=== PATIENT | female | born 1990 | race Caucasian/White ===

== ENCOUNTER 2020-10-13 05:26 | Emergency (ER) | payer MEDICAID, SELFPAY ==
[2020-10-13 05:28] VITALS: BP 125/79; PULSE 73; RESP 18; TEMP 36.8; O2SAT 98; BMI 19.8
--- NOTE | 2020-10-13 05:49 | CT_ITS ---
PROCEDURE: CT FACIAL BONES W CON CLINICAL HISTORY: abscess Facial abscess COMPARISON: No exams were available for comparison TECHNIQUE: Axial images obtained with sagittal and coronal reformats. All CT scans at the facility use one or more dose reduction, viz: automated exposure control, ma/kV adjustment per patient size (including targeted exams where dose is matched to indication, i.e. head), or iterative reconstruction technique. FINDINGS: Prominent soft tissue swelling is present in the central aspect of the frontal area of the scalp extending inferiorly to the proximal nasal area. No obvious abscess. The soft tissue swelling extends laterally to the medial aspect of the preseptal region the orbits on both sides left greater than right however, there is no obvious postseptal involvement. Images were also obtained of the brain and neck. There is mild prominent cervical lymph nodes in the neck. The largest node on the right is present in the right jugular chain measuring 1.8 x 1.1 cm. A cluster of nodes are present in the left jugular chain measuring up to 2.7 by 1.5 cm. These may be reactive. The paranasal sinuses have an unremarkable appearance. No acute intracranial findings. IMPRESSION: Cellulitis in the central and lower aspect of the frontal area extending to the nasal region and the medial aspect of the preseptal area of the orbits. No obvious abscess. Mild cervical adenopathy. Dictated by: Mk Barnes MD 10/13/2020 08:33 Mk Barnes MD in [place] 10/13/2020 08:33
[2020-10-13 06:03] LABS: Basophils # 0.1 K/mm3 (0-0.2); Basophils % 0.7 % (0.1-2.0); Eosinophils # 0.7 K/mm3 (0.0-0.4); Eosinophils % 5.1 % (0.1-12.0); Hematocrit 34.8 % (37.0-47.0); Hemoglobin 11.8 g/dL (12.2-16.2); Lymphocytes # 3.5 K/mm3 (0.7-4.5); Lymphocytes % 25.2 % (10-50); Mean Corpuscular HGB Conc 33.8 g/dL (31.8-35.4); Mean Corpuscular Hemoglobin 29.8 pg (27.0-31.2); Mean Corpuscular Volume 88.3 fl (81-99); Mean Platelet Volume 8.6 fl (7.4-10.4); Monocytes # 0.6 K/mm3 (0.1-1.0); Monocytes % 4.3 % (1.7-9.3); Neutrophils % 64.7 % (37.0-80.0); Platelet Count 260 K/mm3 (142-424); Red Blood Count 3.94 M/mm3 (4.20-5.40); Red Cell Distribution Width 12.6 % (11.5-17.5)
[2020-10-13 06:06] LABS: Chloride 105 mmol/L (98-107); Potassium 3.6 mmoL/L (3.5-5.1); Sodium 140 mmol/L (136-145)
[2020-10-13 06:08] LABS: HCG Qualitative, Serum Negative (Negative)
[2020-10-13 06:09] LABS: Alanine Aminotransferase 15 U/L (12-78); Albumin Level 4.2 g/dl (3.5-5.0); Albumin/Globulin Ratio 1.4 (1.1-1.8); Alkaline Phosphatase 84 U/L (38-126); Anion Gap 10.6 mEq/L (5-15); Aspartate Amino Transferase 22 U/L (14-36); Blood Urea Nitrogen 12 mg/dl (7-17); Calcium 8.8 mg/dl (8.4-10.2); Carbon Dioxide 28 mmol/L (22.0-30.0); Creatinine Clearance Estimated 77 mL/min (50-200); Estimated Glomerular Filt Rate 84 ml/min (>60); GFR (African American) 101 ML/MIN (>60); Globulin 3.1 g/dL (1.3-3.2); Glucose 97 mg/dl (74-100); Total Protein,Serum 7.3 g/dl (6.3-8.2)
--- NOTE | 2020-10-13 06:14 | HMH.EDSKAF ---
ED Disposition Clinical Impression: Facial cellulitis Disposition: Home, Self-Care Condition on Discharge: Good Instructions: DI for Skin Abscess Additional Instructions: use meds and see ent today and pcp Prescriptions: cephALEXin [cephALEXin 500mg capsule*] 500 mg PO TID #30 cap Transmission Status: Pending to [facility] STORE # Minocycline HCl [Minocycline HCl 100mg Tab*] 100 mg PO BID #20 tab Transmission Status: Pending to [facility] # Referrals: Provider,MD Toshia [Primary Care Provider] - Angel House MD [Staff Physician] - - Critical Care Critical Care Time: No Attestation: On 10/13/20, the high probability of a clinically significant, sudden or life threatening deterioration of the following system(s) required my full and direct attention, intervention and personal management. The time I documented below is in addition to time spent performing reported procedures but includes the following listed in this critical care notation. Medical Decision Making - Medical Records Medical records reviewed: Yes: I reviewed the patient's medical records. - Rik Inquiry Pt receiving controlled substance: No Vital Signs: 10/13/20 05:28 10/13/20 07:07 Temperature 98.2 F Temperature Source Oral Pulse Rate 66 Pulse Rate [Right Brachial] 73 Respiratory Rate 18 16 Blood Pressure 106/69 L Blood Pressure [Right Arm] 125/79 Blood Pressure Mean [Right Arm] 94 Blood Pressure Source [Right Arm] Automatic Cuff Blood Pressure Position Sitting Blood Pressure Position [Right Arm] Sitting 02 Sat by Pulse Oximetry 98 96 Oxygen Delivery Method Room Air Room Air - Lab Data Lab results reviewed: Yes: I reviewed the patient's lab results. Lab Results 10/13/20 05:50: WBC 14.0 H, RBC 3.94 L, Hgb 11.8 L, Hct 34.8 L, MCV 88.3, MCH 29.8, MCHC 33.8, RDW 12.6, Plt Count 260, MPV 8.6, Neut % (Auto) 64.7, Lymph % (Auto) 25.2, [place] % (Auto) 4.3, Eos % (Auto) 5.1, Baso % (Auto) 0.7, Neut # (Auto) 9.0 H, Lymph # (Auto) 3.5, [place] # (Auto) 0.6, Eos # (Auto) 0.7 H, Baso # (Auto) 0.1, ESR 27 H 10/13/20 05:50: Sodium 140, Potassium 3.6, Chloride 105, Carbon Dioxide 28, Anion Gap 10.6, BUN 12, Creatinine 0.80, Estimated Creat Clear 77, Estimated GFR 84, Est GFR ( Amer) 101, Glucose 97, Calcium 8.8, Total Bilirubin 1.0, AST 22, ALT 15, Alkaline Phosphatase 84, C-Reactive Protein 4.8 H, Total Protein 7.3, Albumin 4.2, Globulin 3.1, Albumin/Globulin Ratio 1.4 10/13/20 05:50: Procalcitonin 0.045 10/13/20 05:50: Serum HCG, Qual Negative 10/13/20 06:08: Lactate < 0.5 L Result diagrams: 10/13/20 05:50 10/13/20 05:50 Orders (Tests/Meds): ED MEDICATIONS Generic Name Dose Route Start Last Admin Trade Name Freq PRN Reason Stop Dose Admin Miscellaneous 1 each 10/13/20 06:00 10/13/20 06:00 Vancomycin Consult Request * 11/12/20 05:59 1 each CONSULT PHARMACY SHANA Administration Discontinued Medications Generic Name Dose Route Start Last Admin Trade Name Freq PRN Reason Stop Dose Admin Vancomycin HCl 1,000 mg/ 250 mls @ 125 mls/hr 10/13/20 05:59 10/13/20 06:10 Sodium Chloride IV 10/13/20 07:58 125 mls/hr ONCE ONE Administration Protocol Sodium Chloride 1,000 mls @ 999 mls/hr 10/13/20 06:00 10/13/20 06:09 Sod Chlor 0.9% 1000ml Bag IV 10/13/20 07:00 999 mls/hr .Q1H1M SHANA Administration Iopamidol 75 ml 10/13/20 06:29 10/13/20 06:30 Iopamidol-370 (76%);100ml Bottle IV 10/13/20 06:30 75 ml ONCE ONE Administration Ketorolac Tromethamine 30 mg 10/13/20 06:08 10/13/20 06:09 Ketorolac 30mg/Ml Vial IV 10/13/20 06:09 30 mg ONCE ONE Administration Methylprednisolone Sodium Succinate 125 mg 10/13/20 06:08 10/13/20 06:09 Methylprednisolone Sod Succ 125mg Vial IV 10/13/20 06:09 125 mg ONCE ONE Administration Sodium Chloride 10 ml 10/13/20 06:29 10/13/20 06:30 Sodium Chloride 0.9% 10ml Syr (Rad Only) IV 10/13/20 06:30 10 ml
[2020-10-13 06:15] LABS: C-Reactive Protein 4.8 mg/L (0-4)
[2020-10-13 06:26] LABS: Procalcitonin 0.045 ng/mL (0.0-2.0)
[2020-10-13 06:38] LABS: Erythrocyte Sedimentation Rate 27 mm/hr (0-20)
[2020-10-13 06:44] LABS: Lactic Acid < 0.5 mmol/L (0.7-2.1)
[2020-10-13 07:07] VITALS: BP 106/69; PULSE 66; RESP 16; O2SAT 96
[2020-10-13 07:30] VITALS: BP 109/66; PULSE 83; O2SAT 96
[2020-10-13 08:00] VITALS: BP 97/50; PULSE 78; O2SAT 96
--- NOTE | 2020-10-13 08:19 | PC.NURSE ---
contacted Radiology to check on status of CT read, states they have chatted with [facility] multiple times attempted to get them to read CT on pt. States they will check on it again.
--- NOTE | 2020-10-13 08:25 | PC.NURSE ---
Vika from Radiology called at this time, states Dr. Barnes just arrived they are going to pull CT from [facility] and have Dr. Barnes read it. Notified ER
--- NOTE | 2020-10-13 08:55 | PC.NURSE ---
appt made for Dr. House in clinic at 11 am today
[2020-10-13 09:00] VITALS: BP 113/67; PULSE 64; RESP 16; TEMP 36.8; O2SAT 98
--- NOTE | 2020-10-13 09:19 | INFXCTL.NOTE ---
Attempted to call patient's provided phone number for transportation without answer
== END 2020-10-13 09:28 | disposition home or self-care (01) ==
PROVIDERS: Emergency Provider Emergency Medicine
DX: L03.211 Cellulitis of face (principal)
CPT/HCPCS: 70487; 80053; 83605; 84145; 84703; 85025; 85651; 86140; 87040; 96365; 99283; J3370; Q9967

== ENCOUNTER 2021-05-03 17:40 | Emergency (ER) | payer MEDICAID, SELFPAY ==
[2021-05-03 17:42] VITALS: BP 113/75; PULSE 109; RESP 18; TEMP 36.6; O2SAT 100; BMI 24.3
--- NOTE | 2021-05-03 20:12 | HMH.EDANX ---
ED Disposition Clinical Impression: Anxiety Disposition: Home, Self-Care Condition on Discharge: Good Instructions: DI for Anxiety -- Adult Additional Instructions: see pcp for follow up Referrals: Angel House MD [Primary Care Provider] - - Critical Care Critical Care Time: No Attestation: On 05/03/21, the high probability of a clinically significant, sudden or life threatening deterioration of the following system(s) required my full and direct attention, intervention and personal management. The time I documented below is in addition to time spent performing reported procedures but includes the following listed in this critical care notation. Medical Decision Making - Medical Records Medical records reviewed: Yes: I reviewed the patient's medical records. - Rik Inquiry Pt receiving controlled substance: No Vital Signs: 05/03/21 17:42 05/03/21 20:26 Temperature 97.8 F 0 F L Temperature Source Oral Pulse Rate 0 L Pulse Rate [Right Radial] 109 H Respiratory Rate 18 0 L Blood Pressure 0/0 L Blood Pressure [Right Arm] 113/75 Blood Pressure Mean [Right Arm] 87 Blood Pressure Source [Right Arm] Automatic Cuff Blood Pressure Position [Right Arm] Sitting 02 Sat by Pulse Oximetry 100 Oxygen Delivery Method Room Air - Lab Data Lab results reviewed: Yes: I reviewed the patient's lab results. Medical Decision Narrative: pt has no one with her - pt chose to leave at this time - Anxiety HPI - General Chief Complaint: Recheck/Abnormal Lab/Rx Stated Complaint: schizophrenic, no meds, coming down off meds Time Seen by Provider: 05/03/21 20:12 Mode of Arrival: Ambulatory Source of Information: Patient, Medical Record Limitations: No Limitations Description of Symptoms (Recalled from ER Triage Doc. by RN): pt reports has been out of her medications that she takes for anxiety for 5 days. Pt reports she lives in [place] and is here visiting family, states she is going back home in approx 1 week. Pt reports she has been unable to sleep and has had increasing anxiety. Pt reports she takes xanax, risperidone, lamopriatozone (pt spelled medication name), and escitalopram. - History of Present Illness HPI narrative: hx of anxiety - recent d/c [facility] -no soecific issues except out of meds complaint: anxiety Onset (ago): day(s) Severity: moderate History of similar episodes: Yes Provoking factors: other (out of meds ) Associated symptoms: denies other symptoms - Related Data Home Medications: Previous Rx's Medication Instructions Recorded Minocycline HCl [Minocycline HCl 100 mg PO BID #20 tab 10/13/20 100mg Tab*] cephALEXin [cephALEXin 500mg 500 mg PO TID #30 cap 10/13/20 capsule*] Allergies/Adverse Reactions: Allergies Allergy/AdvReac Type Severity Reaction Status Date / Time No Known Allergies Allergy Verified 01/12/21 13:36 [facility] History - Hepatitis A Screen Drug use history?: No High risk sexual behaviors?: No History of sexually transmitted infection?: No Currently employed?: No Childcare worker?: No Do you have indoor plumbing?: Yes Do you have electricity?: Yes Attestation statement:: This patient has been screened for Hepatitis A risk factors. I have reviewed the patient's past medical history: Yes Other Surgeries: Yes: Other - Social History Smoking Status: Never smoker Alcohol Intake: never Substance Use Type: denies use Occupational Status: employed Family Hx:: Hyperlipidemia ROS Obtained: Yes All systems reviewed & no additional complaints - Constitutional Constitutional: Denies fever(s) - Eyes Eyes: Denies change in vision - ENT Ears, Nose, Mouth, and Throat: Denies sore throat - Cardiovascular Cardiovascular: Denies chest pain - Respiratory Respiratory: Denies shortness of breath - Gastrointestinal Gastrointestingal: Denies: abdominal pain - Genitourinary Female Genitourinary: Denies hematuria
--- NOTE | 2021-05-03 20:13 | PC.NURSE ---
phone call made to patients boy friend, no answer voice mail left for patient to call back
[2021-05-03 20:26] VITALS: BP 0/0; PULSE 0; RESP 0; TEMP -17.7; TEMP 0; O2SAT 0
== END 2021-05-03 20:27 | disposition home or self-care (01) ==
PROVIDERS: Emergency Provider Emergency Medicine; PCP Otolaryngology
DX: Z53.21 Procedure and treatment not carried out due to patient leaving prior to being seen by health care provider (principal)
CPT/HCPCS: 99211

== ENCOUNTER 2021-05-03 20:49 | Emergency (ER) | payer MEDICAID, SELFPAY ==
[2021-05-03 20:49] VITALS: BP 113/75; PULSE 109; RESP 18; TEMP 36.6; O2SAT 99; BMI 24.3
--- NOTE | 2021-05-03 20:55 | HMH.EDANX ---
ED Disposition Clinical Impression: Anxiety Disposition: Home, Self-Care Condition on Discharge: Fair Instructions: Anxiety Disorders Additional Instructions: see pcp as needed - Critical Care Critical Care Time: No Attestation: On , the high probability of a clinically significant, sudden or life threatening deterioration of the following system(s) required my full and direct attention, intervention and personal management. The time I documented below is in addition to time spent performing reported procedures but includes the following listed in this critical care notation. Medical Decision Making - Medical Records Medical records reviewed: Yes: I reviewed the patient's medical records. - Rik Inquiry Pt receiving controlled substance: No Vital Signs: 05/03/21 20:49 Temperature 97.8 F Temperature Source Oral Pulse Rate [Right] 109 H Respiratory Rate 18 Blood Pressure [Right Arm] 113/75 Blood Pressure Mean [Right Arm] 87 02 Sat by Pulse Oximetry 99 - Lab Data Lab results reviewed: Yes: I reviewed the patient's lab results. Orders (Tests/Meds): ED MEDICATIONS Discontinued Medications Generic Name Dose Route Start Last Admin Trade Name Freq PRN Reason Stop Dose Admin Lorazepam 1 mg 05/03/21 20:52 05/03/21 20:53 Lorazepam 1mg Tablet PO 05/03/21 20:53 1 mg ONCE ONE Administration Medical Decision Narrative: hx of anxiety and will give dose of med Anxiety HPI - General Chief Complaint: Anxiety Stated Complaint: anixety Time Seen by Provider: 05/03/21 20:55 Mode of Arrival: Ambulatory Source of Information: Patient, Medical Record Limitations: No Limitations Description of Symptoms (Recalled from ER Triage Doc. by RN): pt reports has been out of her medications that she takes for anxiety for 5 days. Pt reports she lives in [place] and is here visiting family, states she is going back home in approx 1 week. Pt reports she has been unable to sleep and has had increasing anxiety. Pt reports she takes xanax, risperidone, lamopriatozone (pt spelled medication name), and escitalopram. - History of Present Illness HPI narrative: has hx of pschy issues and now her friend reports meds have been mailed to her and wishing for dose yessica HARRIS complaint: anxiety Onset (ago): day(s) Severity: moderate History of similar episodes: Yes Provoking factors: other (out of meds ) Associated symptoms: denies other symptoms - Related Data Home Medications: Previous Rx's Medication Instructions Recorded Minocycline HCl [Minocycline HCl 100 mg PO BID #20 tab 10/13/20 100mg Tab*] cephALEXin [cephALEXin 500mg 500 mg PO TID #30 cap 10/13/20 capsule*] Allergies/Adverse Reactions: Allergies Allergy/AdvReac Type Severity Reaction Status Date / Time No Known Allergies Allergy Verified 01/12/21 13:36 H History - Hepatitis A Screen Drug use history?: No High risk sexual behaviors?: No History of sexually transmitted infection?: No Currently employed?: No Childcare worker?: No Do you have indoor plumbing?: Yes Do you have electricity?: Yes Attestation statement:: This patient has been screened for Hepatitis A risk factors. I have reviewed the patient's past medical history: Yes Other Surgeries: Yes: Other - Social History Smoking Status: Never smoker Alcohol Intake: never Substance Use Type: denies use Occupational Status: employed Family Hx:: Hyperlipidemia ROS Obtained: Yes All systems reviewed & no additional complaints - Constitutional Constitutional: Denies fever(s) - Eyes Eyes: Denies change in vision - ENT Ears, Nose, Mouth, and Throat: Denies sore throat - Cardiovascular Cardiovascular: Denies chest pain - Respiratory Respiratory: Denies shortness of breath - Gastrointestinal Gastrointestingal: Denies: abdominal pain - Genitourinary Female Genitourinary: Denies hematuria - Musculoskeletal Musculoskeletal: Denies lyn[place]
[2021-05-03 20:59] VITALS: BP 120/71; PULSE 90; RESP 16; TEMP 36.6; O2SAT 99
== END 2021-05-03 21:01 | disposition home or self-care (01) ==
LOC: ER 20:59
PROVIDERS: Emergency Provider Emergency Medicine
DX: F41.9 Anxiety disorder, unspecified (principal); Z76.0 Encounter for issue of repeat prescription
CPT/HCPCS: 99281

== ENCOUNTER 2021-10-10 20:57 | Emergency (ER) | payer MEDICAID, SELFPAY ==
[2021-10-10 21:10] VITALS: BP 107/72; PULSE 61; RESP 16; TEMP 36.8; O2SAT 98; BMI 20.7
--- NOTE | 2021-10-10 21:30 | PC.NURSE ---
EXPECTED WAIT TIMES GIVEN TO PATIENT AND FAMILY. BLOOD, URINE AND SWABS COLLECTED.
[2021-10-10 21:36] LABS: Microscopic, Urine URINE MICROSCOPIC (MICROSCOPIC)
[2021-10-10 21:36] LABS: Coronavirus 19, PCR Not Detected (NotDetected); Influenza A, PCR Not Detected (NotDetected); Influenza B, PCR Not Detected (NotDetected)
[2021-10-10 21:37] LABS: Appearance,Urine CLOUDY (Clear); Bilirubin,Urine Negative (Negative); Blood, Urine TRACE-I (Negative); Color,Urine YELLOW (Yellow); Glucose,Urine (UA) Negative (Negative); Ketones,Urine 1+ (Negative); Leukocyte Esterase,Urine 1+ (Negative); Nitrate,Urine Negative (Negative); PH,Urine 5.5 (5.0-8.5); Protein,Urine 1+ (Negative); Specific Gravity, Urine >= 1.030 (1.005-1.030)
[2021-10-10 21:41] LABS: Urine Pregnancy, HCG Qual. Negative (Negative)
[2021-10-10 21:45] LABS: Basophils # 0.2 K/mm3 (0-0.2); Basophils % 2.2 % (0.1-2.0); Eosinophils # 0.6 K/mm3 (0.0-0.4); Eosinophils % 8.8 % (0.1-12.0); Hemoglobin 12.8 g/dL (12.2-16.2); Lymphocytes # 3.6 K/mm3 (0.7-4.5); Lymphocytes % 51.1 % (10-50); Mean Corpuscular HGB Conc 31.9 g/dL (31.8-35.4); Mean Corpuscular Hemoglobin 29.9 pg (27.0-31.2); Mean Corpuscular Volume 93.8 fl (81-99); Mean Platelet Volume 8.9 fl (7.4-10.4); Monocytes # 0.4 K/mm3 (0.1-1.0); Monocytes % 5.5 % (1.7-9.3); Neutrophils # 2.3 K/mm3 (1.8-7.8); Neutrophils % 32.4 % (37.0-80.0); Platelet Count 327 K/mm3 (142-424); Red Blood Count 4.27 M/mm3 (4.20-5.40); Red Cell Distribution Width 12.4 % (11.5-17.5); White Blood Count 7.1 K/mm3 (4.8-10.8)
[2021-10-10 21:47] LABS: Alanine Aminotransferase 13 U/L (12-78); Albumin Level 3.7 g/dl (3.5-5.0); Anion Gap 7.3 mEq/L (5-15); Aspartate Amino Transferase 22 U/L (14-36); Bilirubin,Total 1.1 mg/dl (0.2-1.3); Blood Urea Nitrogen 7 mg/dl (7-17); Calcium 8.9 mg/dl (8.4-10.2); Carbon Dioxide 30 mmol/L (22.0-30.0); Chloride 103 mmol/L (98-107); Creatinine Clearance Estimated 106 mL/min (50-200); Estimated Glomerular Filt Rate 116 ml/min (>60); GFR (African American) 140 ML/MIN (>60); Globulin 2.7 g/dL (1.3-3.2); Glucose 97 mg/dl (74-100); Potassium 3.3 mmoL/L (3.5-5.1); Sodium 137 mmol/L (136-145); Total Protein,Serum 6.4 g/dl (6.3-8.2)
[2021-10-10 21:48] LABS: Albumin/Globulin Ratio 1.4 (1.1-1.8); Alkaline Phosphatase 70 U/L (38-126)
[2021-10-10 21:50] LABS: Barbiturates Screen,Urine Negative ng/ml (<200); Benzodiazepines Screen,Urine Negative ng/ml (<200)
[2021-10-10 21:52] LABS: Cannabinoid Screen,Urine Positive ng/ml (<50); Methadone Screen,Urine Negative ng/ml (<300)
[2021-10-10 21:53] LABS: Cocaine Screen,Urine Negative ng/ml (<300)
[2021-10-10 21:54] LABS: Opiate Screen,Urine Negative ng/ml (<300); Phencyclidine Screen,Urine Negative ng/ml (<25)
[2021-10-10 21:59] LABS: Bacteria,Urine 4+ /lpf; RBC,Urine Occasional #/hpf (0-3); Squamous Epithelial Cell,Urine Occasional #/hpf (0-5)
[2021-10-10 22:00] LABS: Ethyl Alcohol < 10 mg/dl (0-10)
--- NOTE | 2021-10-10 22:01 | HMH.EDGENADL ---
ED Disposition Clinical Impression: Paranoid delusion, Nonadherence to medication Schizophrenia Qualifiers: Schizophrenia type: other Qualified Code(s): F20.89 - Other schizophrenia Disposition: Xfer Psychiatric Hosp Condition on Discharge: Good Referrals: Provider,Referral, [Primary Care Provider] - Time of Disposition: 22:07 - Critical Care Critical Care Time: No Attestation: On 10/10/21, the high probability of a clinically significant, sudden or life threatening deterioration of the following system(s) required my full and direct attention, intervention and personal management. The time I documented below is in addition to time spent performing reported procedures but includes the following listed in this critical care notation. Medical Decision Making - Medical Records Medical records reviewed: Yes: I reviewed the patient's medical records. - Rik Inquiry Pt receiving controlled substance: No Vital Signs: 10/10/21 21:10 10/10/21 23:14 Temperature 98.3 F 97.0 F L Temperature Source Oral Oral Pulse Rate 73 Pulse Rate [Left Radial] 61 Respiratory Rate 16 16 Blood Pressure 0/0 L Blood Pressure [Right Arm] 107/72 L Blood Pressure Mean [Right Arm] 83 Blood Pressure Source [Right Arm] Automatic Cuff Blood Pressure Position [Right Arm] Standing 02 Sat by Pulse Oximetry 98 Oxygen Delivery Method Room Air Room Air - Lab Data Lab Results 10/10/21 21:24: WBC 7.1, RBC 4.27, Hgb 12.8, Hct 40.0, MCV 93.8, MCH 29.9, MCHC 31.9, RDW 12.4, Plt Count 327, MPV 8.9, Neut % (Auto) 32.4 L, Lymph % (Auto) 51.1 H, [place] % (Auto) 5.5, Eos % (Auto) 8.8, Baso % (Auto) 2.2 H, Neut # (Auto) 2.3, Lymph # (Auto) 3.6, [place] # (Auto) 0.4, Eos # (Auto) 0.6 H, Baso # (Auto) 0.2, Total Counted 100, Neutrophils % (Manual) 54, Lymphocytes % (Manual) 30, Monocytes % (Manual) 16 H, Platelet Estimate Normal, Hypochromasia 2+, Anisocytosis 1+ 10/10/21 21:24: Sodium 137, Potassium 3.3 L, Chloride 103, Carbon Dioxide 30, Anion Gap 7.3, BUN 7, Creatinine 0.60, Estimated Creat Clear 106, Estimated GFR 116, Est GFR ( Amer) 140, Glucose 97, Calcium 8.9, Total Bilirubin 1.1, AST 22, ALT 13, Alkaline Phosphatase 70, Total Protein 6.4, Albumin 3.7, Globulin 2.7, Albumin/Globulin Ratio 1.4 10/10/21 21:24: Plasma/Serum Alcohol < 10 10/10/21 21:25: SARS-CoV-2 (PCR) Not detected, Influenza A Untype (PCR) Not detected, Influenza Type B (PCR) Not detected 10/10/21 21:27: Urine Color Yellow, Urine Appearance Cloudy, Urine pH 5.5, Ur Specific [place] >= 1.030, Urine Protein 1+, Urine Glucose (UA) Negative, Urine Ketones 1+, Urine Blood Trace-i, Urine Nitrate Negative, Urine Bilirubin Negative, Urine Urobilinogen 1.0, Ur Leukocyte Esterase 1+ A, Urine RBC Occasional, Urine WBC 10-20, Ur Squamous Epith Cells Occasional, Urine Bacteria 4+ 10/10/21 21:27: Urine HCG, Qual Negative 10/10/21 21:27: Urine Opiates Screen Negative, Urine Methadone Screen Negative, Ur Barbituates Screen Negative, Ur Phencyclidine Scrn Negative, Ur Amphetamines Screen Not Reportable, U Benzodiazepines Scrn Negative, Urine Cocaine Screen Negative, U Marijuana (THC) Screen Positive H Result diagrams: 10/10/21 21:24 10/10/21 21:24 Orders (Tests/Meds): ORDERS Category Date Time Status Urine Culture Stat Micro 10/10/21 21:27 Received Medical Decision Narrative: In summary this is a 31-year-old female with history of schizophrenia, PTSD, anxiety and depression presenting to the emergency department with intrusive thoughts, manic episodes. Patient is clinically stable on my evaluation. She is conversational. Seems to be in touch with reality. She says she would voluntarily be admitted to [facility]. I believe this is a good plan. She is not currently on a 72-hour hold. She denies suicidal ideation or homicidal ideation. Screening laboratory work obtained including CBC, CMP, urinalysis, drug screen, alcohol level. Laboratory results are reassuring. Glucose a
[2021-10-10 22:02] LABS: MANUAL DIFFERENTIAL MANUAL DIFFERENTIAL (MANUAL DIFF)
--- NOTE | 2021-10-10 22:12 | INFXCTL.NOTE ---
patient given peanut butter and crackers and pepsi, no other needs at this time. patient informed that we are awaiting lab results and as soon as we get those, she will be transferred. patient acknowledge
--- NOTE | 2021-10-10 22:33 | PC.NURSE ---
notified dispatch that pt is ready to be transported to [facility]
--- NOTE | 2021-10-10 22:45 | PC.NURSE ---
PD notified that patient is confused and wanting to leave, officer is on his way to assist. Unable to reach patients boyfriend by phone
--- NOTE | 2021-10-10 23:00 | PC.NURSE ---
PT MADE AWARE OF EVERYTHING READY FOR TRANSPORT TO [facility] FOR VOLUNTARY ADMISSION. PT CONTINUES TO DENY SI/HI.
[2021-10-10 23:08] LABS: Anisocytosis 1+; Hypochromasia 2+; Lymphocytes % 30 % (10-50); Monocytes % 16 % (2-9); Neutrophils % 54 % (42-76); Platelet Estimate Normal; Total Cells Counted 100
--- NOTE | 2021-10-10 23:08 | PC.NURSE ---
PT LEFT AFTER MEDICAL CLEARANCE. PT A VOLUNTARY TRANSFER TO [facility] WHO DENIES SI/HI. [employer] MADE AWARE.
[2021-10-10 23:14] VITALS: BP 0/0; PULSE 73; RESP 16; TEMP 36.1; O2SAT 97
[2021-10-20 04:09] LABS: Amphetamine Positive (.); Amphetamine (GC/MS) 16120 ng/mL (Cutoff=500); Amphetamines Positive (.); Methamphetamine Positive (.); Methamphetamine (GC/MS) >3000 ng/mL (Cutoff=500)
== END 2021-10-10 23:19 | disposition left against medical advice (07) ==
PROVIDERS: Emergency Provider Emergency Medicine
DX: F20.0 Paranoid schizophrenia (principal); Z91.19 Patient's noncompliance with other medical treatment and regimen; Z02.89 Encounter for other administrative examinations
CPT/HCPCS: 80053; 80305; 80324; 81001; 81025; 85007; 85025; 87086; 87088; 87186; 99282; C9803; U0003; U0005

== ENCOUNTER 2021-10-23 03:50 | Emergency (ER) | payer MEDICAID, SELFPAY ==
[2021-10-23 03:49] VITALS: BP 100/76; PULSE 90; RESP 16; TEMP 36.8; O2SAT 96; BMI 21.7
--- NOTE | 2021-10-23 04:12 | PC.NURSE ---
PD at BS at this time
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
--- NOTE | 2021-10-23 04:19 | PC.NURSE ---
Pt hand cleaned with sterile water and hibiclens
[2021-10-23 04:24] LABS: Basophils # 0.1 K/mm3 (0-0.2); Basophils % 1.9 % (0.1-2.0); Eosinophils # 0.5 K/mm3 (0.0-0.4); Hematocrit 40.2 % (37.0-47.0); Hemoglobin 12.9 g/dL (12.2-16.2); Lymphocytes # 3.3 K/mm3 (0.7-4.5); Lymphocytes % 43.7 % (10-50); Mean Corpuscular HGB Conc 32.1 g/dL (31.8-35.4); Mean Corpuscular Hemoglobin 29.6 pg (27.0-31.2); Mean Platelet Volume 8.6 fl (7.4-10.4); Monocytes # 0.4 K/mm3 (0.1-1.0); Monocytes % 5.3 % (1.7-9.3); Neutrophils # 3.2 K/mm3 (1.8-7.8); Neutrophils % 42.1 % (37.0-80.0); Platelet Count 362 K/mm3 (142-424); Red Blood Count 4.37 M/mm3 (4.20-5.40); Red Cell Distribution Width 12.6 % (11.5-17.5); White Blood Count 7.6 K/mm3 (4.8-10.8)
[2021-10-23 04:29] LABS: Albumin Level 4.4 g/dl (3.5-5.0); Albumin/Globulin Ratio 1.6 (1.1-1.8); Alkaline Phosphatase 173 U/L (38-126); Anion Gap 7.5 mEq/L (5-15); Aspartate Amino Transferase 293 U/L (14-36); Bilirubin,Total 0.8 mg/dl (0.2-1.3); Blood Urea Nitrogen 15 mg/dl (7-17); Calcium 9.3 mg/dl (8.4-10.2); Carbon Dioxide 31 mmol/L (22.0-30.0); Chloride 105 mmol/L (98-107); Creatinine Clearance Estimated 95 mL/min (50-200); Estimated Glomerular Filt Rate 97 ml/min (>60); GFR (African American) 117 ML/MIN (>60); Globulin 2.8 g/dL (1.3-3.2); Glucose 140 mg/dl (74-100); Potassium 3.5 mmoL/L (3.5-5.1); Sodium 140 mmol/L (136-145); Total Protein,Serum 7.2 g/dl (6.3-8.2)
[2021-10-23 04:35] LABS: C-Reactive Protein 1.5 mg/L (0-4)
[2021-10-23 04:38] LABS: Alanine Aminotransferase 839 U/L (12-78)
[2021-10-23 04:48] LABS: Procalcitonin 0.056 ng/mL (0.0-2.0)
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
[2021-10-23 04:59] LABS: Erythrocyte Sedimentation Rate 15 mm/hr (0-20)
[2021-10-23 05:35] LABS: Microscopic, Urine URINE MICROSCOPIC (MICROSCOPIC)
--- NOTE | 2021-10-23 05:37 | PC.NURSE ---
Pt requesting NS 0.9% to be stopped d/t i didn't know you were giving me sodium chloride, that stuff will kill me . Pt teaching given on normal saline and sodium chloride 0.9%. Pt states I don't want this, the sodium chloride is different that saline . Pt refuses to state why she might be killed from it . She denies any medication allergies. Asked pt if LR or Lactated ringers would be ok to give for hydration d/t the ct scan contrast . Pt refuses this stated I am concerned for all of the stuff you guys are giving me and the government tracking and am worried it could change my DNA. Pt educated on vaccines and IV fluids, however she reports she doesn't want to listen anymore. I have medical knowledge. .
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
--- NOTE | 2021-10-23 05:47 | PC.NURSE ---
at speaking with pt about POC
--- NOTE | 2021-10-23 05:47 | PC.NURSE ---
PIV wrapped d/t dressing partially removed by pt. She states she wants it removed, however pt may need abx for UTI or further labs and she consented to allow to keep IV in place for a little.
[2021-10-23 06:04] LABS: Appearance,Urine SL CLOUDY (Clear); Bilirubin,Urine Negative (Negative); Blood, Urine TRACE-I (Negative); Color,Urine YELLOW (Yellow); Glucose,Urine (UA) Negative (Negative); Ketones,Urine Negative (Negative); Leukocyte Esterase,Urine Negative (Negative); Nitrate,Urine POSITIVE (Negative); Protein,Urine 2+ (Negative); Specific Gravity, Urine >= 1.030 (1.005-1.030); Urobilinogen,Urine 0.2 EU/dl (0.2)
[2021-10-23 06:08] LABS: Bacteria,Urine 3+ /lpf
[2021-10-23 06:10] VITALS: BP 108/60; PULSE 78; RESP 18; TEMP 36.6; O2SAT 96
[2021-11-04 18:19] LABS: Hep A Ab, IgM Negative; Hepatitis B Core Antibody IgM Negative; Hepatitis B Surface Antigen Negative; Hepatitis C Antibody >11.0
== END 2021-10-23 06:11 | disposition home or self-care (01) ==
PROVIDERS: Emergency Provider Emergency Medicine
DX: S22.22XA Fracture of body of sternum, initial encounter for closed fracture (principal); S60.511A Abrasion of right hand, initial encounter; W22.8XXA Striking against or struck by other objects, initial encounter; M79.641 Pain in right hand; M54.2 Cervicalgia; N39.0 Urinary tract infection, site not specified; B96.20 Unspecified Escherichia coli [E. coli] as the cause of diseases classified elsewhere
CPT/HCPCS: 70450; 70491; 71250; 73110; 73130; 80053; 80074; 81001; 84145; 85025; 85651; 86140; 87086; 87088; 87186; 90471; 90715; 96360; 99284